=== PATIENT | male | born 1960 | race Hispanic/Latino ===

== ENCOUNTER 2017-11-06 12:28 | Outpatient (CLI) | payer BC ==
--- NOTE | 2017-11-06 13:35 | XRay Report ---
PA and lateral chest: Cough. Several linear increased densities are in the left lower lobe. The chest otherwise is clear and well aerated. Mediastinal contour is unremarkable. No prior study for comparison. Impression: Probable atelectasis left lower lobe.
== END 2017-11-06 12:29 | disposition home or self-care (01) ==
LOC: SPVIMAG 12:28
PROVIDERS: ATTEND Internal Medicine
DX: J98.11 Atelectasis (principal); R05 Cough
CPT/HCPCS: 71046